=== PATIENT | female | born 1985 | race Caucasian/White ===

== ENCOUNTER → 2018-05-22 09:59 | Outpatient (CLI) | payer BC, SELFPAY ==
[2018-05-22 09:57] VITALS: BMI 19.3
[2018-05-22 10:52] LABS: Hemoglobin A1c 5.6 % (4.2-6.3)
[2018-05-22 11:07] LABS: Glucose 90 mg/dL (74-106)
== END ==
PROVIDERS: Family Provider Family Medicine; PCP Family Medicine; Visit Provider Obstetrics & Gynecology
DX: Z34.03 Encounter for supervision of normal first pregnancy, third trimester (principal)
CPT/HCPCS: 36415; 82947; 83036

== ENCOUNTER → 2018-06-05 17:36 | Outpatient (CLI) | payer BC, SELFPAY ==
[2018-06-05 12:42] VITALS: BMI 19.3
== END ==
PROVIDERS: Family Provider Family Medicine; Referring Provider Obstetrics & Gynecology; Visit Provider Obstetrics & Gynecology
DX: Z34.03 Encounter for supervision of normal first pregnancy, third trimester (principal)
CPT/HCPCS: 87081

== ENCOUNTER 2018-06-12 07:00 | Outpatient (CLI) | payer BC, SELFPAY ==
[2018-06-05 12:42] VITALS: BMI 19.3
[2018-06-12] MEDS: Terbutaline 1 MG/ML Vial 0.25 MG SC (07:57)
[2018-06-12 08:05] VITALS: BMI 25.4
--- NOTE | 2018-06-12 08:20 | OB.TRI.PN ---
Progress Notes Date of Service: 06/12/18 Progress Note: patient here for version but spontaneous conversion to vertex- version cancelled
== END 2018-06-12 08:20 | disposition home or self-care (01) ==
LOC: WPOUT 07:34 → WP 07:34
PROVIDERS: Referring Provider Obstetrics & Gynecology; Visit Provider Obstetrics & Gynecology
DX: O34.599 Maternal care for other abnormalities of gravid uterus, unspecified trimester (principal); Z3A.00 Weeks of gestation of pregnancy not specified
CPT/HCPCS: 36415; 59025; 59050; 76815; 86850; 86870; 86900; 96372; 99218; G0378

== ENCOUNTER 2018-07-08 06:59 | Inpatient (IN) | payer BC, SELFPAY ==
[2018-07-06 11:15] VITALS: BMI 27.4
[2018-07-08 07:05] VITALS: BMI 25.0
--- NOTE | 2018-07-08 07:18 | PCM.HP.OB ---
- Problem List (1) Post-term Status: Acute (2) Abnormal glucose affecting Status: Acute Comment: mildly abnormal at [facility]- declined 3 hour test, normal hgba1c and random sugar (3) Rh negative status during Status: Acute Qualifiers: Comment: rhogam given at [facility] at 28 weeks (4) Status: Acute Qualifiers: Comment: [facility] (5) Supervision of normal first in third trimester Status: Acute Comment: PRR LAURA 07/01/18 girl Bob Jeffery History Date of Admission: 07/08/18 Final LAURA: 07/01/18 Gestational age: 41 Weeks and 0 Days History of this : This is a 33 year-old, at 41 weeks gestational age presents for IOL secondary to postdates. she has had an uncomplicated with no issues. she denies any vb lof admits good fm Surgical History: Surgical History (Last Reviewed 07/06/18 @ 11:16 by Donya Clayton) History of tonsillectomy and adenoidectomy Z98.890 Allergies codeine Allergy (Verified 07/06/18 11:15) Other Home Medications: Home Medications vitamin,calcium,jntbqaje-hpdt-prcbd acid tablet 1 tab PO DAILY 05/10/18 Smoking Status: Never smoker Number of Fetus(es): 1 Heart Tracin moderate variability reactive no decelerations category I tracing [place]: no regular History Past Pregnancies: Past Pregnancies Delivery Date Name GA/Weeks Outcome Route Weight Gender Labor Length Anesthesia Delivery Location Provider FOB Labs: Social History Smoking Status Never smoker Expected Infant Delivery Method: Spontaneous Vaginal Review of Systems Constitutional: Denies: Fever, Malaise Eyes: Denies: Blurred vision, Vision Change HEENT: Denies: Head Aches, Visual Changes Cardiovascular: Denies: Chest Pain, Palpitations Respiratory: Denies: Cough, Shortness of Breath, Wheezing Gastrointestinal: Denies: Abdominal Pain, Diarrhea, Nausea, Vomiting Genitourinary: Denies: Dysuria, Hematuria Musculoskeletal: Denies: Joint Pain, Muscle pain Skin: Denies: Lesions, Rash Neurological: Denies: Blurred vision, Focal weakness, Headaches Psychiatric: Denies: Anxiety, Depression Endocrine: Denies: Heat/ Cold Intolerance Hematologic/ Lymphatic: Denies: Easy Bruising, Easy Bleeding Physical Exam General: Alert, Cooperative, No apparent distress HEENT: Atraumatic, Normocephalic. Negative for: Thyromegaly, Lymphadenopathy Cardiovascular: Regular rate Lungs: Normal air movement Abdomen: Soft, Non Tender, Gravid Neurological: Deep Tendon Reflexes 2+/4 and Symmetrical, Neuro grossly intact. 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 Negative for: Vulvar lesions Estimated gestational size: Appropriate for gestational size Presentation: Cephalic Assessment/Plan All Active Problems (Last Reviewed 07/06/18 @ 11:16 by Donya Clayton) Post-term (Acute) Abnormal glucose affecting (Acute) Rh negative status during (Acute) (Acute) Supervision of normal first in third trimester (Acute) Breech presentation (Resolved) This is a 33 year-old, , at 41 weeks gestational age presents IOL postdates. Patient presents IOL, plan management for , pitocin/AROM after Schmidt bulb placement. Pain management: Desires minimal intervention but open to epidural. GBS negative. Management of any complications: None I have reviewed the [facility] and made any clinically relevant updates.
--- NOTE | 2018-07-08 07:21 | HP.PCM_ITS ---
- Problem List (1) Post-term Status: Acute (2) Abnormal glucose affecting Status: Acute Comment: mildly abnormal at [facility]- declined 3 hour test, normal hgba1c and random sugar (3) Rh negative status during Status: Acute Qualifiers: Comment: rhogam given at [facility] at 28 weeks (4) Status: Acute Qualifiers: Comment: [facility] (5) Supervision of normal first in third trimester Status: Acute Comment: PRR LAURA 07/01/18 girl Bob Jeffery History Date of Admission: 07/08/18 Final LAURA: 07/01/18 Gestational age: 41 Weeks and 0 Days History of this : This is a 33 year-old, at 41 weeks gestational age presents for IOL secondary to postdates. she has had an uncomplicated with no issues. she denies any vb lof admits good fm Surgical History: Surgical History (Last Reviewed 07/06/18 @ 11:16 by Donya Clayton) History of tonsillectomy and adenoidectomy Z98.890 Allergies codeine Allergy (Verified 07/06/18 11:15) Other Home Medications: Home Medications vitamin,calcium,bqkpwxju-bmwq-cillh acid tablet 1 tab PO DAILY 05/10/18 Smoking Status: Never smoker Number of Fetus(es): 1 Heart Tracin moderate variability reactive no decelerations category I tracing [place]: no regular History Past Pregnancies: Past Pregnancies Delivery Date Name GA/Weeks Outcome Route Weight Gender Labor Length Anesthesia Delivery Location Provider FOB Labs: Social History Smoking Status Never smoker Expected Infant Delivery Method: Spontaneous Vaginal Review of Systems Constitutional: Denies: Fever, Malaise Eyes: Denies: Blurred vision, Vision Change HEENT: Denies: Head Aches, Visual Changes Cardiovascular: Denies: Chest Pain, Palpitations Respiratory: Denies: Cough, Shortness of Breath, Wheezing Gastrointestinal: Denies: Abdominal Pain, Diarrhea, Nausea, Vomiting Genitourinary: Denies: Dysuria, Hematuria Musculoskeletal: Denies: Joint Pain, Muscle pain Skin: Denies: Lesions, Rash Neurological: Denies: Blurred vision, Focal weakness, Headaches Psychiatric: Denies: Anxiety, Depression Endocrine: Denies: Heat/ Cold Intolerance Hematologic/ Lymphatic: Denies: Easy Bruising, Easy Bleeding Physical Exam General: Alert, Cooperative, No apparent distress HEENT: Atraumatic, Normocephalic. Negative for: Thyromegaly, Lymphadenopathy Cardiovascular: Regular rate Lungs: Normal air movement Abdomen: Soft, Non Tender, Gravid Neurological: Deep Tendon Reflexes 2+/4 and Symmetrical, Neuro grossly intact. 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 Negative for: Vulvar lesions Estimated gestational size: Appropriate for gestational size Presentation: Cephalic Assessment/Plan All Active Problems (Last Reviewed 07/06/18 @ 11:16 by Donya Clayton) Post-term (Acute) Abnormal glucose affecting (Acute) Rh negative status during (Acute) (Acute) Supervision of normal first in third trimester (Acute) Breech presentation (Resolved) This is a 33 year-old, , at 41 weeks gestational age presents IOL postdates. Patient presents IOL, plan management for , pitocin/AROM after Schmidt bulb placement. Pain management: Desires minimal intervention but open to epidural. GBS negative. Management of any complications: None I have reviewed the [facility] and made any clinically relevant updates.
[2018-07-08] MEDS: Oxytocin 30 units/NS 500 ml 30 UNITS/500 ML IV.SOLN IV (08:18)
[2018-07-08] MEDS: 0.9% Normal Saline 100 ML IV.SOLN. INTRA-UTER (08:18)
[2018-07-08] MEDS: Lactated Ringers 1,000 ML 50 ML IV ×3 (08:18→23:38)
[2018-07-08 08:19] LABS: Absolute Lymphocyte Count 0.93 X10^3/ul (0.83-4.51); Absolute Neutrophil Count 7.5 X10^3/uL (2.0-7.7); Basophil# 0.01 X10^3/uL; Basophil% 0.1 % (0-1); Eosinophil# 0.06 X10^3/uL; Eosinophils% 0.7 % (0-5); Hematocrit 36.5 % (37-47); Hemoglobin 12.1 g/dl (12.0-15.0); Lymphocyte # 0.93 X10^3/ul (4.0); Lymphocyte % 10.1 % (19-41); Mean Corp Hgb Conc 33.2 g/gl (32-36); Mean Corpuscular Hgb 30.3 pg (27.0-32.0); Mean Corpuscular Volume 91.5 fL (81-99); Mean Platelet Vol. 11.4 fl (6.2-12.0); Monocyte# 0.69 X10^3/uL; Monocyte% 7.5 % (0-10); Neutrophil # 7.53 X10^3/uL (2.7-7.7); Neutrophil % 81.5 % (47-70); Platelet Count 217 K/mm3 (150-450); RBC Distribution Width CV 14.2 % (11.6-14.6); RBC Distribution Width SD 47.1 fl (35.1-43.9); Red Blood Count 3.99 M/mm3 (4.2-5.4); White Blood Count 9.2 K/mm3 (4.4-11.0)
[2018-07-08 08:20] LABS: POSITIVE COUNT NO; POSITIVE DIFFERENTIAL NO; POSITIVE MORPHOLOGY NO
[2018-07-08] MEDS: fentaNYL-bupivacaine (epidural) 100 ML BAG EPIDURAL ×2 (18:35→23:35)
[2018-07-08] MEDS: Amnioinfusion- 0.9% NS 1,000 ML IV.SOLN. 1000 ML INTRA-UTER (23:48)
--- NOTE | 2018-07-09 01:59 | PCM.PN.BLA ---
Progress Note fht 150s moderate variability reactive occasional mild variable overall cat II reassuring toco q 2-4 cervix now 9-10, high fowlers, exp mangement continue pit per protocol
--- NOTE | 2018-07-09 04:24 | PCM.OB.VAG ---
- Problem List (1) Post-term Status: Acute (2) Abnormal glucose affecting Status: Acute Comment: mildly abnormal at [facility]- declined 3 hour test, normal hgba1c and random sugar (3) Rh negative status during Status: Acute Qualifiers: Trimester: third trimester Qualified Code(s): O26.893 - Other specified related conditions, third trimester; Z67.91 - Unspecified blood type, Rh negative Comment: rhogam given at [facility] at 28 weeks (4) Status: Acute Qualifiers: Weeks of gestation: 40 weeks Qualified Code(s): Z3A.40 - 40 weeks gestation of Comment: [facility] (5) Supervision of normal first in third trimester Status: Acute Comment: PRR LAURA 07/01/18 girl Bob Jeffery Vaginal Delivery Maternal Presentation: Medically Indicated Induction 41 week IOL Method of Induction: Pitocin, Schmidt Bulb Amniotic Membrane Rupture Type: Artificial Amniotic Fluid Description: Clear Final LAURA: 07/01/18 Gestational age: 41 Weeks and 1 Days Date of Procedure: 07/09/18 Pre-Operative Diagnosis: iol postdates Post-Operative Diagnosis: same Surgery/ Procedure Performed: Spontaneous Vaginal Delivery Type of Anesthesia: Epidural Description of Procedure: Patient began pushing and delivered the head in the PEREZ presentation. The head was delivered atraumatically loose nuchal cord x1 was identified and easily reduced over the 's head. The anterior and posterior shoulders delivered without complication followed by the rest of the and the infant was placed on the maternal abdomen. Delayed cord clamping was employed for approximately 60 seconds. Cord was clamped and cut and gentle traction was applied to the cord and the placenta delivered spontaneously immediately following it was noted to be intact with three-vessel cord. The perineum and vagina were inspected and noted to have a second-degree perineal laceration that was repaired in the usual fashion with 3-0 Vicryl repeat. EBL was 300cc. Patient and infant tolerated delivery well. Presentation: PEREZ Placental Delivery Description: Spontaneous Placenta Disposition: [facility] Cord Vessel Description: 3 Vessels Nuchal Cord Compression: Without compression Cord Entanglement: Around neck x 1, tight Estimated Blood Loss: 300 Infant A gender: Female Episiotomy Description: None Laceration: Perineal Extension/lac, 2nd degree Medications given after delivery: IV Pitocin Complications: None
[2018-07-09] MEDS: Oxytocin 30 units/NS 500 ml 30 UNITS/500 ML IV.SOLN 334 UNITS IV (06:02)
[2018-07-09] MEDS: Oxytocin 30 units/NS 500 ml 30 UNITS/500 ML IV.SOLN 167 UNITS IV (06:32)
[2018-07-09] MEDS: Naproxen 250 MG Tablet 500 MG PO (10:12)
[2018-07-09 12:15] VITALS: BP 126/70; PULSE 66; RESP 16; TEMP 37.2
[2018-07-09] MEDS: Dibucaine 30 GM Tube 1 APPLIC TOPICAL (12:57)
--- NOTE | 2018-07-09 13:50 | NURSING ---
This nursing home assistant administrator reviewed the charting completed by the student nurse, Merry Hendrickson and it is complete.
[2018-07-09 16:30] VITALS: BP 119/65; PULSE 73; RESP 16; TEMP 36.3
[2018-07-09] MEDS: Ketorolac 10 MG Tablet PO ×2 (16:45→22:50)
[2018-07-09 20:00] VITALS: BP 132/75; PULSE 63; RESP 17; TEMP 36.4
[2018-07-09 23:55] VITALS: BP 128/78; PULSE 68; RESP 17
--- NOTE | 2018-07-10 07:57 | PCM.PN.OB ---
Patient Problems: Active and Suspected Problems (Last Reviewed 07/06/18 @ 11:16 by Donya Clayton) Post-term (Acute) Subjective: doing well no complaints pain controlled no CP SOB N V ambulating well tolerating po lochia moderate, : working with . - Physical Exam General: Oriented x3 Abdomen: Soft, Non Tender, - - FF below U Vital Signs Temp Pulse Resp BP 97.6 F L 68 17 128/78 H 07/09/18 20:00 07/09/18 23:55 07/09/18 23:55 07/09/18 23:55 Oxygen Delivery Method Room Air Weight: 150 lb 2.157 oz Body Mass Index (BMI) 25.0 Intake and Output for Last 24 Hours 07/08/18 07/09/18 07/10/18 23:59 23:59 23:59 Intake Total 6545 / 6545 Output Total 1800 / 1800 Balance 4745 / 4745 Laboratory Tests Past 24 Hrs 07/09/18 09:20 Screen NEGATIVE Baby's Blood Type A POSITIVE Baby's REBECCA NEGATIVE Medical Necessity - Tobacco Use Smoking Status: Never smoker Assessment/Plan All Active Problems (Last Reviewed 07/06/18 @ 11:16 by Donya Clayton) Post-term (Acute) Abnormal glucose affecting (Acute) Rh negative status during (Acute) (Acute) Supervision of normal first in third trimester (Acute) Breech presentation (Resolved) s/p PPD # 1 1. routine post delivery care 2. breast feeding- support given 3. rh negative 4. rubella immune
[2018-07-10] MEDS: Ketorolac 10 MG Tablet PO (08:48)
[2018-07-10] MEDS: Senna/Docusate Sodium 1 Tablet PO (08:49)
[2018-07-10 08:58] VITALS: PULSE 60; RESP 18
[2018-07-10 10:52] VITALS: BP 132/59; PULSE 60; RESP 16; TEMP 36.1
[2018-07-10 14:00] VITALS: PULSE 72; RESP 16; TEMP 36.1
[2018-07-10 15:02] VITALS: BP 118/72
--- NOTE | 2018-07-10 15:59 | PCM.DCVAG ---
Additional Instructions: If you experience any of the following, contact your healthcare provider. Bleeding that soaks a pad every hour for 2 hours Fever 100.4 or higher Unrelieved incision or abdominal pain Swelling, redness, discharge or bleeding from your incision or episiotomy site Your incision begins to separate Problems urinating (including inability to urinate or burning while urinating). Visual changes Severe headache Flu-like symptoms Pain or redness in one of both of your breasts Pain, warmth, tenderness or swelling in your legs, especially the calf area Frequent nausea and vomiting Symptoms of depression or anxiety If you experience any of the following, call 911 or go to the nearest Emergency Room. Chest pain Problems breathing Seizure activity Partial or complete paralysis of a body part, slurred speech, weakness or drooping of the face, or a sudden inability to walk or hold your balance Allergies/Adverse Reactions: Allergies codeine Allergy (Verified 07/06/18 11:15) Other Medications to take at Discharge vitamin,calcium,somypljq-gdwh-flurz acid tablet 1 tab PO DAILY 05/10/18 Primary Care Physician: Care Physician,No Primary [Primary Care Provider] - Test Results: Test results from this visit will be discussed in further detail at your follow-up appointment, if applicable.
--- NOTE | 2018-07-10 16:00 | DCINST_ITS ---
Additional Instructions: If you experience any of the following, contact your healthcare provider. * Bleeding that soaks a pad every hour for 2 hours * Fever 100.4 or higher * Unrelieved incision or abdominal pain * Swelling, redness, discharge or bleeding from your incision or episiotomy site * Your incision begins to separate * Problems urinating (including inability to urinate or burning while urinating). * Visual changes * Severe headache * Flu-like symptoms * Pain or redness in one of both of your breasts * Pain, warmth, tenderness or swelling in your legs, especially the calf area * Frequent nausea and vomiting * Symptoms of depression or anxiety If you experience any of the following, call 911 or go to the nearest Emergency Room. * Chest pain * Problems breathing * Seizure activity * Partial or complete paralysis of a body part, slurred speech, weakness or drooping of the face, or a sudden inability to walk or hold your balance Allergies/Adverse Reactions: Allergies codeine Allergy (Verified 07/06/18 11:15) Other Medications to take at Discharge vitamin,calcium,iikkveob-vkrw-kjaaj acid tablet 1 tab PO DAILY 05/10/18 Primary Care Physician: Care Physician,No Primary [Primary Care Provider] - Test Results: Test results from this visit will be discussed in further detail at your follow- up appointment, if applicable.
== END 2018-07-10 19:35 | disposition home or self-care (01) | DRG 807 ==
PROVIDERS: Admitting Provider Obstetrics & Gynecology; Referring Provider Obstetrics & Gynecology; Visit Provider Obstetrics & Gynecology
DX: O48.0 Post-term pregnancy (principal); Z37.0 Single live birth; Z3A.41 41 weeks gestation of pregnancy; O26.893 Other specified pregnancy related conditions, third trimester; Z67.91 Unspecified blood type, Rh negative; O70.1 Second degree perineal laceration during delivery; O69.81X0 Labor and delivery complicated by cord around neck, without compression, not applicable or unspecified
CPT/HCPCS: 59025; 59050; 85025; 85461; 86850; 86900; 86901; 90384; 99218; J7030; J7120; G0378; J2790

== ENCOUNTER 2021-04-26 10:47 | Outpatient (CLI) | payer BC, SELFPAY ==
[2021-04-26 11:27] LABS: Amphetamine Urine VISTA NEGATIVE (<1000 ng/mL); Barbiturate Urine VISTA NEGATIVE (< 200 ng/mL); Benzodiazepine Urine VISTA NEGATIVE (< 200 ng/mL); Cocaine Urine VISTA NEGATIVE (< 300 ng/mL); Ecstacy Urine VISTA NEGATIVE (< 500 ng/mL); Methadone Urine VISTA NEGATIVE (< 300 ng/mL); PCP Urine VISTA NEGATIVE (< 25 ng/mL); THC Urine VISTA NEGATIVE (< 50 ng/mL)
[2021-04-26 13:12] LABS: Vista UDS pH Range 5
[2021-04-27 22:07] LABS: Chlamydia By Nucleic Acid AMP Negative (Negative)
[2021-04-28 08:49] LABS: Gonococcus By Nucleic Acid AMP Negative (Negative)
[2021-04-28 18:04] LABS: HPV APTIMA, High Risk Negative (Negative)
== END 2021-04-26 23:59 | disposition short-term general hospital (02) ==
LOC: LABSPEC 10:48
PROVIDERS: Referring Provider Obstetrics & Gynecology; Visit Provider Obstetrics & Gynecology
DX: O09.90 Supervision of high risk pregnancy, unspecified, unspecified trimester (principal); Z3A.00 Weeks of gestation of pregnancy not specified; Z12.4 Encounter for screening for malignant neoplasm of cervix
CPT/HCPCS: 80307; 87086; 87088; 87491; 87591; 87624; 88175; G0145

== ENCOUNTER 2021-05-24 09:29 | Outpatient (CLI) | payer BC, SELFPAY ==
[2021-05-24 09:54] LABS: Absolute Lymphocyte Count 0.96 X10^3/uL (0.83-4.51); Absolute Neutrophil Count 6.6 X10^3/uL (2.0-7.7); Basophil# 0.02 X10^3/uL; Basophil% 0.2 % (0-1); Eosinophil# 0.03 X10^3/uL; Eosinophils% 0.4 % (0-5); Hematocrit 37.4 % (37-47); Lymphocyte # 0.96 X10^3/ul (0.83-4.51); Lymphocyte % 11.7 % (19-41); Mean Corp Hgb Conc 34.8 g/dL (32-36); Mean Corpuscular Hgb 31.1 pg (27.0-32.0); Mean Corpuscular Volume 89.5 fL (81-99); Mean Platelet Vol. 9.5 fl (6.2-12.0); Monocyte# 0.57 X10^3/uL; NRBC Flagged by Analyzer 0 % (0-5); Neutrophil # 6.58 X10^3/uL (2.7-7.7); Neutrophil % 80.3 % (47-70); Platelet Count 332 K/mm3 (150-450); RBC Distribution Width CV 12.4 % (11.6-14.6); RBC Distribution Width SD 40.9 fl (35.1-43.9); Red Blood Count 4.18 M/mm3 (4.2-5.4); White Blood Count 8.2 K/mm3 (4.4-11.0)
[2021-05-24 11:01] LABS: HIV - WCH Non-Reactive (Nonreactive); Hepatitis B Surface Antigen Non-Reactive (Nonreactive); Hepatitis C Antibody Non-Reactive (Nonreactive); Rubella IgG Reactive (Nonreactive); Syphilis Antibodies Non-reactive
== END 2021-05-24 23:59 | disposition home or self-care (01) ==
LOC: PAVLAB 09:31
PROVIDERS: Referring Provider Obstetrics & Gynecology; Visit Provider Obstetrics & Gynecology
DX: O09.90 Supervision of high risk pregnancy, unspecified, unspecified trimester (principal); Z3A.00 Weeks of gestation of pregnancy not specified
CPT/HCPCS: 36415; 85025; 86703; 86762; 86780; 86803; 86850; 86900; 86901; 87340

== ENCOUNTER 2021-06-21 16:03 | Outpatient (CLI) | payer BC, SELFPAY | END 2021-06-21 23:59 | disposition home or self-care (01) | LOC: LABSPEC 16:04 | PROVIDERS: Referring Provider Obstetrics & Gynecology; Visit Provider Obstetrics & Gynecology | DX: Z34.92 Encounter for supervision of normal pregnancy, unspecified, second trimester (principal) | CPT/HCPCS: 87086; 87088 ==

== ENCOUNTER → 2021-08-19 | Outpatient (CLI) | payer BC, SELFPAY ==
[2021-08-19 08:19] LABS: Absolute Lymphocyte Count 1.04 X10^3/uL (0.83-4.51); Absolute Neutrophil Count 7.4 X10^3/uL (2.0-7.7); Basophil# 0.02 X10^3/uL; Basophil% 0.2 % (0-1); Eosinophil# 0.05 X10^3/uL; Eosinophils% 0.5 % (0-5); Hematocrit 35.6 % (37-47); Lymphocyte # 1.04 X10^3/ul (0.83-4.51); Lymphocyte % 11.2 % (19-41); Mean Corp Hgb Conc 33.7 g/dL (32-36); Mean Corpuscular Hgb 31.5 pg (27.0-32.0); Mean Corpuscular Volume 93.4 fL (81-99); Mean Platelet Vol. 9.7 fl (6.2-12.0); Monocyte# 0.71 X10^3/uL; Monocyte% 7.6 % (0-10); NRBC Flagged by Analyzer 0 % (0-5); Neutrophil # 7.44 X10^3/uL (2.7-7.7); Platelet Count 328 K/mm3 (150-450); RBC Distribution Width CV 12.9 % (11.6-14.6); RBC Distribution Width SD 44.1 fl (35.1-43.9); Red Blood Count 3.81 M/mm3 (4.2-5.4); White Blood Count 9.3 K/mm3 (4.4-11.0)
[2021-08-19 08:51] LABS: Glucose Challenge Gest 1H 50g 87 mg/dL (70-140)
== END | disposition home or self-care (01) ==
LOC: PAVLAB 07:47
PROVIDERS: Nurse Practitioner Women's Health; Referring Provider Obstetrics & Gynecology; Visit Provider Obstetrics & Gynecology
DX: Z34.92 Encounter for supervision of normal pregnancy, unspecified, second trimester (principal); Z13.1 Encounter for screening for diabetes mellitus
CPT/HCPCS: 36415; 82950; 85025; 86850; 86870; 86900; 86901

== ENCOUNTER → 2021-10-12 | Outpatient (CLI) | payer BC, SELFPAY | END | disposition home or self-care (01) | PROVIDERS: Nurse Practitioner Women's Health; Referring Provider Obstetrics & Gynecology; Visit Provider Obstetrics & Gynecology | DX: O36.0190 Maternal care for anti-D [Rh] antibodies, unspecified trimester, not applicable or unspecified (principal); Z3A.00 Weeks of gestation of pregnancy not specified | CPT/HCPCS: 36415 ==

== ENCOUNTER → 2021-10-25 | Outpatient (CLI) | payer BC, SELFPAY ==
--- NOTE | 2021-10-25 09:51 | US_ITS ---
STUDY: SECOND AND THIRD TRIMESTER OBSTETRICAL ULTRASOUND - LIMITED REASON FOR EXAM: Female, 36 years old growth @ 36 weeks LMP: 02/06/2021. PRIOR ULTRASOUND: None. TECHNIQUE: Transabdominal TECHNICAL QUALITY: Adequate. FINDINGS: There is a single intrauterine fetus. The fetus is in a cephalic presentation. There is demonstrated cardiac activity with a heart rate of 142 bpm. There is a normal amniotic fluid volume. The largest amniotic fluid pocket measures 4.8 cm. The amniotic fluid index (MAUREEN) is 9.8 cm. The placenta is posterior in location and is not low lying. There are Grade 1 placental changes. BIOMETRY: BPD: 8.91 cm: 36 weeks, 1 days HC: 32.16 cm: 36 weeks, 3 days AC: 31.71 cm: 35 weeks, 5 days FL: 6.91 cm: 35 weeks, 4 days Age by LMP: 36 weeks, 1 days. LAURA by LMP: 11/21/2021. age by current US: 36 weeks, 0 days. LAURA by current US: 11/22/2021. Estimated weight: 2747 grams, +/- 401 grams, 19 percentile. US/OB Limited With Biometrics IMPRESSION: Single live intrauterine gestation with mean gestational age of 36 weeks. Electronically Signed: Augustine Barrios MD at 8:24 EDT ,
== END | disposition home or self-care (01) ==
PROVIDERS: Referring Provider Nurse Practitioner Women's Health; Visit Provider Nurse Practitioner Women's Health
DX: O09.522 Supervision of elderly multigravida, second trimester (principal); Z3A.00 Weeks of gestation of pregnancy not specified
CPT/HCPCS: 76816; 87081

== ENCOUNTER 2021-11-11 06:55 | Inpatient (IN) | payer BC, SELFPAY ==
[2021-11-11] VITALS (55 sets, daily range): BP systolic 101–135; BP diastolic 51–81; PULSE 66–100; RESP 16; TEMP 36.3–36.8; O2SAT 92–100; BMI 25.2
[2021-11-11 07:50] LABS: Absolute Lymphocyte Count 0.92 X10^3/uL (0.83-4.51); Absolute Neutrophil Count 6.7 X10^3/uL (2.0-7.7); Basophil# 0.01 X10^3/uL; Basophil% 0.1 % (0-1); Eosinophil# 0.05 X10^3/uL; Eosinophils% 0.6 % (0-5); Hematocrit 36.8 % (37-47); Hemoglobin 12.3 g/dL (12.0-15.0); Lymphocyte # 0.92 X10^3/ul (0.83-4.51); Lymphocyte % 11.2 % (19-41); Mean Corp Hgb Conc 33.4 g/dL (32-36); Mean Corpuscular Hgb 30.8 pg (27.0-32.0); Mean Platelet Vol. 10.8 fl (6.2-12.0); Monocyte# 0.52 X10^3/uL; Monocyte% 6.3 % (0-10); NRBC Flagged by Analyzer 0 % (0-5); Neutrophil # 6.68 X10^3/uL (2.7-7.7); Neutrophil % 81.4 % (47-70); Platelet Count 225 K/mm3 (150-450); RBC Distribution Width CV 13.3 % (11.6-14.6); RBC Distribution Width SD 44.5 fl (35.1-43.9); White Blood Count 8.2 K/mm3 (4.4-11.0)
[2021-11-11] MEDS: 0.9% Normal Saline Single 100 ML IV.SOLN. INTRA-UTER (08:28)
[2021-11-11] MEDS: Lactated Ringers 1,000 ML 50 ML IV (08:30)
[2021-11-11] MEDS: Oxytocin 30 units/NS 500 ml 30 UNITS/500 ML IV.SOLN IV (08:54)
[2021-11-11] MEDS: fentaNYL-bupivacaine (epidural) 100 ML BAG EPIDURAL (14:12)
[2021-11-11] MEDS: Oxytocin 30 units/NS 500 ml 30 UNITS/500 ML IV.SOLN 334 UNITS IV (19:16)
--- NOTE | 2021-11-11 19:25 | OP.PCM_ITS ---
Assessment & Plan (1) Rh negative status during : QUALIFIERS: Trimester: third trimester Qualified Code(s): O26.893 - Other specified related conditions, third trimester; Z67.91 - Unspecified blood type, Rh negative COMMENT: rhogam (2) : QUALIFIERS: Weeks of gestation: 39 weeks Qualified Code(s): Z3A.39 - 39 weeks gestation of COMMENT: GBS NEGATIVE, anatomy nl, declines genetic and carrier ntd. (3) AMA (advanced maternal age) multigravida 35+: QUALIFIERS: Trimester: second trimester Qualified Code(s): O09.522 - Supervision of elderly multigravida, second trimester COMMENT: needs growth US at 36 weeks. [facility] US due to insurance (4) Supervision of high risk , antepartum: COMMENT: PRR LAURA: 11/13/21 kira ferreira PC: Bob Spouse: Jeffery (5) Vaginal delivery: COMMENT: SM IOL ama hanna kira Maternal Data Information LAURA Calculator Estimated Delivery Date Method Current WG Current Estimate 11/13/21 Ultrasound #1 39w 5d Other Estimates 11/21/21 LMP (Certain) 38w 4d Vaginal Delivery Operative Information Date of Procedure: 11/11/21 Pre-Operative Diagnosis: IOL Post-Operative Diagnosis: same Surgery / Procedure Performed: Spontaneous Vaginal Delivery Type of Anesthesia: Epidural Special Medications: none Estimated Blood Loss: 100 Fluids Replaced: crystalloid Findings Description of Procedure: Patient began pushing and delivered the head in the PEREZ presentation. The head was delivered atraumatically . The anterior and posterior shoulders delivered without complication followed by the rest of the infant and the infant was placed on the maternal abdomen. Delayed cord clamping was employed for approximately 60 seconds. Cord was clamped and cut and gentle traction was applied to the cord and the placenta delivered spontaneously immediately following it was noted to be intact with three-vessel cord. The perineum and vagina were inspected and noted to have a second degree laceration repaired in the usual fashion with 3-0 rapide . EBL was 100 cc. Patient and infant tolerated delivery well. Presentation: PEREZ Amniotic Membrane Rupture Type: Artificial Amniotic Fluid Description: Clear Placental Delivery Description: Spontaneous Placenta Disposition: [facility] Cord Vessel Description: 3 Vessels Cord Entanglement: None Delayed Cord Clamping: Yes Post Vaginal Delivery Medications Given After Delivery: IV Pitocin Episiotomy Description: None Laceration: Perineal Extension/lac and 2nd degree Complication Complications: None Procedures Urinary/Genital [id number]: [id number] Vaginal Delivery [facility]
--- NOTE | 2021-11-11 19:25 | HP.PCM.OB_ITS ---
HPI - General General Date of Admission: 11/11/21 HPI Narrative RAMY CIFUENTES, is a 36 F who presentsfor IOL AMA. Maternal Data Information LAURA Calculator Estimated Delivery Date Method Current WG Current Estimate 11/13/21 Ultrasound #1 39w 5d Other Estimates 11/21/21 LMP (Certain) 38w 4d PFSH PFSH Medical History Rh negative status during Home Medications prenat.vits,esdras,wda-gnlp-fmfmv 1 tab PO DAILY 05/10/18 [History Last Taken 07/07/18] breast pump #1 ea 10/25/21 [Rx Last Taken Unknown] Allergy/AdvReac Type Severity Reaction Status Date / Time codeine Allergy Other Verified 11/01/21 08:20 Surgical History History of tonsillectomy and adenoidectomy Social History current occupational status: employed current occupation: [email or web address] and [employer] [place] Smoking Status: Never smoker alcohol intake: never substance use type: does not use diet: vegetarian seatbelt use: always do you feel safe at home: Yes additional social history: Jeffery Conde History 2 Elective abortions Hx Para 1 Spontaneous abortions Hx # Term Pregnancies Ectopic pregnancies Hx # Pregnancies Multiple births # of living children 1 Past Pregnancies Del. Date Name GA/Weeks Outcome Route Bth Weight Gen Labor Lgth Anesthesia Del Locatn Provider FOB 07/08/18 Bob 41 live - full term 7lbs 1oz Female 23 h ours epidural [facility] Delivery Date: 07/08/18 Last Updated by: Vania Fletcher 2 degree lac, post dates Visit Details Expected Delivery Route/Plan Labor Preferences- CB/BF classes: no labor support person: Jeffery labor intervention preferences: [] pain management options preferred: epidural cut cord/dad catch: no : yes PP control planned: discussed discussed possible routes of delivery and associated risks: [] special requests: [] Plans Covid status: discussed encouraged Flu vaccine:discussed encouraged Tdap vaccine: declines Rhogam: given LARC form signed: yes Problem list reviewed and updated with the most current plan of care details and appropriate orders placed. Relevant counseling for the gestational age provided. Continue routine care and follow up unless otherwise noted in visit notes/problem list details OB Flowsheet Initial Weight: 130 lb Date -?-?-?-?-?-?-?-?-?-?-?-?- EGA Weight BP Urine Prot -?-?-?-?-?-?-?-?-?-?-?-?- Glucose FHR FuHt Pres Dilation -?-?-?-?-?-?-?-?-?-?-?-?- Effaced St Visit Note 04/26/21 -?-?-?-?-?-?-?-?-?-?-?-?- 11w 2d 131 lb (+16 oz) 130/80 -?-?-?-?-?-?-?-?-?-?-?-?- 168 -?-?-?-?-?-?-?-?-?-?-?-?- JV- CRL off by 8 days from LMP. new laura calculated 05/24/21 -?-?-?-?-?-?-?-?-?-?-?-?- 15w 2d 133 lb 2 oz (+3 lb 2 oz) 126/62 Negative -?-?-?-?-?-?-?-?-?-?-?-?- Negative 152 -?-?-?-?-?-?-?-?-?-?-?-?- MH-Doing well. N o Vb, LOF. will get PNL today. MFM US ordered. 06/21/21 -?-?-?-?-?-?-?-?-?-?-?-?- 19w 2d 136 lb (+6 lb) 112/82 -?-?-?-?-?-?-?-?-?-?-?-?- 145 -?-?-?-?-?-?-?-?-?-?-?-?- SM- still nasuea but improving. us reviewed. 07/19/21 -?-?-?-?-?-?-?-?-?-?-?-?- 23w 2d 140 lb 8 oz (+10 lb 8 oz) 118/74 Negative -?-?-?-?-?-?-?-?-?-?-?-?- Negative 143 -?-?-?-?-?-?-?-?-?-?-?-?- -NO VB, LOF. G ood FM. Nausea mild and less often. 08/19/21 -?-?-?-?-?-?-?-?-?-?-?-?- 27w 5d 146 lb 6 oz (+16 lb 6 oz) 100/60 Negative -?-?-?-?-?-?-?-?-?-?-?-?- Negative 158 28 -?-?-?-?-?-?-?-?-?-?-?-?- JV-no lof, vagin al bleeding, or dec fm. normal glucola and cbc, rhogam given. 09/14/21 -?-?-?-?-?-?-?-?-?-?-?-?- 31w 3d 149 lb (+19 lb) 114/70 Negative -?-?-?-?-?-?-?-?-?-?-?-?- Negative 134 31 -?-?-?-?-?-?-?-?-?-?-?-?- JV- no complaint s today. + FM and no lof, vaginal bleeding. 09/27/21 -?-?-?-?-?-?-?-?-?-?-?-?- 33w 2d 150 lb 8 oz (+20 lb 8 oz) 128/70 Negative -?-?-?-?-?-?-?-?-?-?-?-?- Negative 132 32 -?-?-?-?-?-?-?-?-?-?-?-?- -No Vb, LOF. G ood FM. Larc. Ordered 36wk growth 10/12/21 -?-?-?-?-?-?-?-?-?-?-?-?- 35w 3d 148 lb (+18 lb) 100/80 Negative -?-?-?-?-?-?-?-?-?-?-?-?- Negative 130 35 -?-?-?-?-?-?-?-?-?-?-?-?- SM- no vb lof go od fm no regular ctx SM- no vb lof good fm no reg ular ctx discussed antibody positivity. 10/25/21 -?-?-?-?-?-?-?-?-?-?-?-?- 37w 2d 151 lb 6 oz (+21 lb 6 oz) 124/80 Negative -?-?-?-?-?-?-?-?-?-?-?-?- Negative 120 36 Cephalic 1 .5 -?-?-?-?-?-?-?-?-?-?-?-?- 50 -1 SM- no vb lof good fm no regualr ctx 11/01/21 -?-?-?-?-?-?-?-?-?-?-?-?- 38w 2d 153 lb 6 oz (+23 lb 6 oz) 131/78 Negative -?-?-?-?-?-?-?-?-?-?-?-?- Negative 120 38 Cephalic 1 .5 -?-?-?-?-?-?-?-?-?-?-?-?- SM- no vb lof go od fm no regular ctx discussed US findings 11/09/21 -?-?-?-?-?-?-?-?-?-?-?-?- 39w 3d 154 lb (+24 lb) 136/84 Negative -?-?-?-?-?-?-?-?-?-?-?-?- Negative 120 39 Cephalic 1 .5 -?-?-?-?-?-?-?-?-?-?-?-?- 50 -1 Sm- no vb lof good fm nor egular ctx plan IOL monday for AMA 11/11/21 -?-?-?-?-?-?-?-?-?-?-?-?- 39w 5d 152 lb (+22 lb) 135/74 124/60 118/72 124/81 127/78 120/67 116/64 101/60 120/75 131/60 120/68 125/66 -?-?-?-?-?-?-?-?-?-?-?-?- -?-?-?-?-?-?-?-?-?-?-?-?- NST FHR Rate Baby A Baseline: 130 Variability:: Moderate Accelerations:: 15 x 15 Decelerations:: None NST Reactive:: Yes FHR Category:: Category I Uterine Activity:: irregular ROS Constitutional Constitutional: Reports systems reviewed and no addt'l complaints, except as documented Eyes Eyes: Denies change in vision ENT HEENT: Reports systems reviewed and no addt'l complaints, except as documented; Denies headache(s) Cardiovascular Cardiovascular: Reports systems reviewed and no addt'l complaints, except as documented; Denies chest pain or dyspnea Respiratory/Chest Respiratory/Chest: Reports systems reviewed and no addt'l complaints, except as documented Gastrointestinal Gastrointestinal: Reports systems reviewed and no addt'l complaints, except as documented; Denies abdominal pain Genitourinary Genitourinary: Reports systems reviewed and no addt'l complaints, except as documented, contractions Details: present (irregular) and movement Detai ls: present; Denies dysuria or genital lesions Musculoskeletal Musculoskeletal: Reports systems reviewed and no addt'l complaints, except as documented Neurologic Neurologic: Reports systems reviewed and no addt'l complaints, except as documented Endocrine Endocrinology: Reports systems reviewed and no addt'l complaints, except as documented Vital Signs Vital Signs Vital Signs: 11/11/21 07:17 11/11/21 07:17 11/11/21 07:19 Temperature Temperature Source Pulse Rate 82 89 Blood Pressure BP Systolic BP Diastolic Pulse Ox 98 11/11/21 07:19 11/11/21 07:19 11/11/21 07:19 Temperature Temperature Source Pulse Rate 77 Blood Pressure 135/74 H BP Systolic 135 BP Diastolic 74 Pulse Ox 92 11/11/21 07:22 11/11/21 07:22 11/11/21 07:26 Temperature Temperature Source Pulse Rate 94 89 Blood Pressure BP Systolic BP Diastolic Pulse Ox 96 11/11/21 07:26 11/11/21 07:27 11/11/21 07:27 Temperature Temperature Source Pulse Rate 96 Blood Pressure BP Systolic BP Diastolic Pulse Ox 92 95 11/11/21 07:32 11/11/21 07:32 11/11/21 07:34 Temperature Temperature Source Pulse Rate 82 82 Blood Pressure BP Systolic BP Diastolic Pulse Ox 95 11/11/21 07:34 11/11/21 08:21 11/11/21 08:21 Temperature 97.3 F L Temperature Source Temporal Pulse Rate Blood Pressure BP Systolic BP Diastolic Pulse Ox 94 11/11/21 09:22 11/11/21 09:22 11/11/21 09:22 Temperature Temperature Source Pulse Rate 72 Blood Pressure 124/60 H BP Systolic 124 BP Diastolic 60 Pulse Ox 99 11/11/21 10:23 11/11/21 10:23 11/11/21 12:10 Temperature Temperature Source Pulse Rate 75 Blood Pressure 118/72 124/81 H BP Systolic 118 124 BP Diastolic 72 81 Pulse Ox 11/11/21 12:10 11/11/21 14:00 11/11/21 14:00 Temperature Temperature Source Pulse Rate 85 80 Blood Pressure BP Systolic BP Diastolic Pulse Ox 100 11/11/21 14:05 11/11/21 14:05 11/11/21 14:10 Temperature Temperature Source Pulse Rate 82 Blood Pressure 127/78 H BP Systolic 127 BP Diastolic 78 Pulse Ox 100 11/11/21 14:10 11/11/21 14:10 11/11/21 14:10 Temperature Temperature Source Pulse Rate 80 81 Blood Pressure BP Systolic BP Diastolic Pulse Ox 99 11/11/21 14:15 11/11/21 14:15 11/11/21 14:15 Temperature Temperature Source Pulse Rate 76 87 Blood Pressure 120/67 BP Systolic 120 BP Diastolic 67 Pulse Ox 11/11/21 14:15 11/11/21 14:20 11/11/21 14:20 Temperature Temperature Source Pulse Rate 81 Blood Pressure 116/64 BP Systolic 116 BP Diastolic 64 Pulse Ox 100 11/11/21 14:20 11/11/21 14:20 11/11/21 14:22 Temperature 97.5 F L Temperature Source Pulse Rate 83 Blood Pressure BP Systolic BP Diastolic Pulse Ox 100 11/11/21 14:25 11/11/21 14:25 11/11/21 14:25 Temperature Temperature Source Pulse Rate 84 Blood Pressure 101/60 BP Systolic 101 BP Diastolic 60 Pulse Ox 100 11/11/21 14:30 11/11/21 14:30 11/11/21 14:30 Temperature Temperature Source Pulse Rate 85 84 Blood Pressure 120/75 BP Systolic 120 BP Diastolic 75 Pulse Ox 11/11/21 14:30 11/11/21 14:53 11/11/21 14:53 Temperature Temperature Source Pulse Rate 77 Blood Pressure 131/60 H BP Systolic 131 BP Diastolic 60 Pulse Ox 100 11/11/21 14:53 11/11/21 14:53 11/11/21 14:53 Temperature 97.6 F L Temperature Source Temporal Pulse Rate Blood Pressure BP Systolic BP Diastolic Pulse Ox 99 11/11/21 15:56 11/11/21 15:56 11/11/21 15:56 Temperature Temperature Source Temporal Pulse Rate 66 Blood Pressure 120/68 BP Systolic 120 BP Diastolic 68 Pulse Ox 11/11/21 15:56 11/11/21 15:57 11/11/21 15:57 Temperature 98.2 F Temperature Source Pulse Rate 73 Blood Pressure BP Systolic BP Diastolic Pulse Ox 99 11/11/21 17:12 11/11/21 17:12 11/11/21 18:19 Temperature 97.7 F L Temperature Source Pulse Rate 71 Blood Pressure 125/66 H BP Systolic 125 BP Diastolic 66 Pulse Ox Weight Weight: 152 lb Body Mass Index (BMI) 25.2 Physical Exam Const alert, oriented x3, no apparent distress and healthy appearing HEENT normocephalic and moist oral mucous membranes Head and Scalp: atraumatic Neck full ROM, no lymphadenopathy, supple and thyroid normal General: trachea midline Lymph Lymphatic: no lymphadenopathy noted Chest inspection of chest normal Resp normal respiratory effort Cardio regular rate GI normal to inspection, nondistended, normoactive bowel sounds, soft to palpation and non-tender Inspection: gravid external exam normal Manual OB Exam: estimated gestational size appropriate, presentation cephalic, dilated, effaced and station Extremity normal to inspection General Extremity: Negative for edema Skin no rashes or lesions noted Neuro no focal motor deficits and deep tendon reflexes 2+ bilaterally Motor Exam: strength 5/5 throughout and clonus absent Psych mental status grossly normal Labs Labs Labs: Blood Type A NEGATIVE Antibody Screen POSITIVE H Hct 36.8 % (37-47) L Hgb 12.3 g/dL (12.0-15.0) Pap Smear Negative Obstetrics US Syphilis Total Ab Non-reactive Rubella IgG Antibody Reactive (Nonreactive) Hep Bs Antigen Non-Reactive (Nonreactive) Chlamydia DNA (RC) Negative (Negative) Neisseria gonorrhoeae DNA (RC) Negative (Negative) HIV 1&2 Antibody Non-Reactive (Nonreactive) Glucose 1 Hr 50 gm 87 mg/dL (70-140) Rhogam given: Yes Miscellaneous Test Assessment & Plan (1) Supervision of high risk , antepartum: COMMENT: PRR LAURA: 11/13/21 kira boy PC: Bob Spouse: Jeffery (2) AMA (advanced maternal age) multigravida 35+: QUALIFIERS: Trimester: second trimester Qualified Code(s): O09.522 - Supervision of elderly multigravida, second trimester COMMENT: needs growth US at 36 weeks. [facility] US due to insurance (3) : QUALIFIERS: Weeks of gestation: 39 weeks Qualified Code(s): Z3A.39 - 39 weeks gestation of COMMENT: GBS NEGATIVE, anatomy nl, declines genetic and carrier ntd. (4) Rh negative status during : QUALIFIERS: Trimester: third trimester Qualified Code(s): O26.893 - Other specified related conditions, third trimester; Z67.91 - Unspecified blood type, Rh negative COMMENT: rhogam PLAN: Plan iol ama pit fb
--- NOTE | 2021-11-11 19:27 | DCINST_ITS ---
Discharge Instructions Diet Discharge Diet: No restrictions Activity Discharge Activity: Return to Normal Activity, May Drive, May Shower and May Take a Tub Bath (in 4 weeks) May resume sexual activity in: 6-8 weeks (after seen by OB provider) Weight Bearing Status: Full weight bearing Lifting Restrictions: none Dressing / Incision Call your doctor if you observe: Fever of 101 or Higher, Inability to urinate, Using more than 1 pad per hour (for more than 2 hours in a row or more), Shortness of breath, Dizziness, Chest pain and - (headache not controlled with tylenol, change in vision) Follow Up Care When: in 6 weeks for visit, call the office to make the appointment. If you had elevated blood pressures call the office to be seen within 1 week. Test Results: Test results from this visit will be discussed in further detail at your follow- up appointment, if applicable. Discharge Plan Admission Admit Date/Time: 11/11/21 06:55 Attending Provider: Janey Batres Primary Care Provider: Care Physician,Tasia Primary Discharge Orders/Prescriptions Prescriptions: No Action prenat.vits,esdras,bbt-[id number]-[id number] tablet 1 tab PO DAILY (DME) breast pump Device See Rx Instructions .ROUTE .MEDSUPPLY Qty: 1 0RF Rx Instructions: As directed Referrals / Follow Up: Care Physician,No Primary [Primary Care Provider] - Disposition Disposition (needs filled in before D/C Order can be placed): Home, Self Care
[2021-11-11] MEDS: Naproxen 500 MG Tablet PO (23:03)
--- NOTE | 2021-11-11 23:15 | NURSING ---
Care assumed from HALEIGH Narayan
[2021-11-12 04:49] VITALS: BP 96/52; PULSE 70; RESP 18; TEMP 36.2; O2SAT 98
[2021-11-12 08:00] VITALS: BP 111/62; PULSE 78; RESP 16; TEMP 36.4
--- NOTE | 2021-11-12 08:06 | PCM.PN.OB ---
Subjective Subjective Patient doing well without complaints. Tolerating PO. Ambulating and voiding without difficulty. feeding well. Denies chest pain, shortness of breath, calf pain/swelling, fevers, chills, lightheadedness. Objective Data Objective Data Vital Signs: Vital Signs Temp Pulse Resp BP Pulse Ox O2 Del Method 97.5 F L 78 16 111/62 98 Room Air 11/12/21 08:00 11/12/21 08:00 11/12/21 08:00 11/12/21 08:00 11/12/21 04:49 11/12/21 08:00 Oxygen Delivery Method Room Air Weight: 152 lb Body Mass Index (BMI) 25.2 Intake & Output: Intake and Output for Last 24 Hours 11/10/21 11/11/21 11/12/21 23:59 23:59 23:59 Intake Total 1573.03 / 1573.03 Output Total 200 / 200 1400 / 1400 Balance 1373.03 / 1373.03 -1400 / -1400 Lab / Micro Data Result Diagrams: 11/11/21 07:35 Labs: Laboratory Results - last 24 hr 11/11/21 07:35: Blood Type A NEGATIVE, Antibody Screen POSITIVE H, Antibody Identification ANTI-D 11/11/21 23:50: Screen NEGATIVE, Baby's Blood Type O POSITIVE, Baby's REBECCA NEGATIVE ROS Constitutional Constitutional: Reports systems reviewed and no addt'l complaints, except as documented Cardiovascular Cardiovascular: Reports systems reviewed and no addt'l complaints, except as documented Respiratory/Chest Respiratory/Chest: Reports systems reviewed and no addt'l complaints, except as documented Gastrointestinal Gastrointestinal: Reports systems reviewed and no addt'l complaints, except as documented Physical Exam Const alert, oriented x3 and no apparent distress HEENT Head and Scalp: atraumatic Resp normal respiratory effort GI soft to palpation and non-tender Bimanual Exam - Vag & Uterus: uterus non-tender Uterus Palpation: uterus fundus firm (below Umbilicus) Assessment & Plan (1) Vaginal delivery: COMMENT: SM IOL ama boy kira PLAN: Plan s/p PPD # 1 1. routine post delivery care 2. breast feeding- support given 3. rh neg- rhogam PRN 4. rubella immune
[2021-11-12] MEDS: Prenatal Vits Tablet 1 TABLET PO (11:14)
[2021-11-12 12:52] VITALS: BP 114/63; PULSE 78; RESP 16; TEMP 36.7
[2021-11-12 17:49] VITALS: BP 128/69; PULSE 78; RESP 16; TEMP 36.6
[2021-11-12 20:04] VITALS: BP 117/71; PULSE 65; RESP 16; TEMP 36.4; O2SAT 99
== END 2021-11-12 20:35 | disposition home or self-care (01) | DRG 807 ==
PROVIDERS: Admitting Provider Obstetrics & Gynecology; Referring Provider Obstetrics & Gynecology; Visit Provider Obstetrics & Gynecology
DX: O70.1 Second degree perineal laceration during delivery (principal); Z37.0 Single live birth; Z3A.39 39 weeks gestation of pregnancy; Z67.91 Unspecified blood type, Rh negative
CPT/HCPCS: 59025; 59050; 85025; 85461; 86850; 86870; 86900; 86901; 90384; 99218; J7120; G0378; J2790